=== PATIENT | female | born 1990 | race Caucasian/White ===

== ENCOUNTER 2017-07-23 01:34 | Emergency (ER) | payer OTHER ==
[2017-07-23 04:15] LABS: URINE APPEARANCE CLOUDY; URINE BILIRUBIN NEGATIVE (NEGATIVE); URINE BLOOD 1+ (NEGATIVE); URINE COLOR YELLOW; URINE GLUCOSE (UA) NEGATIVE (NEGATIVE); URINE KETONE NEGATIVE (NEGATIVE); URINE NITRITE NEGATIVE (NEGATIVE); URINE PROTEIN NEGATIVE (NEGATIVE); URINE UROBILINOGEN NEGATIVE mg/dL (0.2-1.0)
[2017-07-23 04:18] LABS: URINE BACTERIA MANY /hpf (NONE SEEN); URINE MUCUS FEW; URINE RBC 33; URINE WBC 3
[2017-07-23] MEDS ORDERED: KETOROLAC TROMETHAMINE 30 MG/1 ML VIAL IVPUSH ONE (04:29)
--- NOTE | 2017-07-23 04:29 | PDOC ---
History of Present Illness - General Chief Complaint: Pain Stated Complaint: PAIN Time Seen by Provider: 07/23/17 04:02 - History of Present Illness Initial Comments: 07/23/17 04:25 CHIEF COMPLAINT: abdominal pain HISTORY OF PRESENT ILLNESS: 27 yo F with hx of ovarian cysts presents to ED with one month of lower abdominal pain and headache today. Patient states she saw her PMD Dr. Jonny Thorpe this week and was given a prescription to get a renal ultrasound. She denies any fever, chills, nausea, vomiting, or diarrhea. No recent travel or sick contacts. PAST MEDICAL HISTORY: Denies past medical history FAMILY HISTORY: Denies SOCIAL HISTORY: Denies tobacco, alcohol, illicit drug use. SURGICAL HISTORY: 4 years ago ALLERGIES: PCN REVIEW OF SYSTEMS General/Constitutional: Denies fever or chills. Denies weakness, weight change. HEENT: Denies change in vision. Denies ear pain or discharge. Denies sore throat. Cardiovascular: Denies chest pain or shortness of breath. Respiratory: Denies cough, wheezing, or hemoptysis. Gastrointestinal: Lower abdominal pain. Denies nausea, vomiting, diarrhea or constipation. Genitourinary: Denies dysuria, frequency, or change in urination. Musculoskeletal: Denies joint or muscle swelling or pain. Denies neck or back pain. Skin: Denies rash or easy bruising. Neurologic: "I have a little headache now." Denies vertigo, loss of consciousness, or loss of sensation. PHYSICAL EXAM General Appearance: Well-appearing, appropriately dressed. No apparent distress , no intoxication. HEENT: EOMI, PERRLA. No conjunctival pallor. No photophobia, scleral icterus. Respiratory/Chest: Lungs CTAB. Cardiovascular: RRR. S1, S2. Gastrointestinal/Abdominal: Mild tenderness to lower abdomen. Normal bowel sounds. Abdomen soft, non-distended. No organomegaly, pulsatile mass, guarding , hernia, hepatomegaly, splenomegaly. Musculoskeletal/Extremities: Normal inspection. FROM of all extremities, normal capillary refill. Pelvis Stable. No CVA tenderness. No tenderness to extremities, pedal edema, swelling, erythema or deformity. Integumentary: Appropriate color, dry, warm. No cyanosis, erythema, jaundice or rash Neurologic: trouble clerk II-XII intact. Fully oriented, alert. Appropriate mood/affect. Motor strength 5/5. No appreciable EOM palsy, facial droop or sensory deficit. Past History - Past Medical History Allergies/Adverse Reactions: Allergies Allergy/AdvReac Type Severity Reaction Status Date / Time Penicillins Allergy Intermediate Rash Verified 07/15/16 07:57 Home Medications: Ambulatory Orders Vit No.130/Iron/FA [ Vitamins] 1 each PO DAILY 04/14/16 Ibuprofen [Motrin -] 600 mg PO TID PRN #21 tablet 07/23/17 Asthma: No Cancer: No Cardiac Disorders: No COPD: No Diabetes: No HTN: No Seizures: No Thyroid Disease: No - Suicide/Smoking/Psychosocial Hx Smoking History: Never smoked Have you smoked in the past 12 months: No Hx Alcohol Use: No Drug/Substance Use Hx: No Substance Use Type: None Hx Substance Use Treatment: No ED Treatment Course - LABORATORY CBC & Chemistry Diagram: 07/23/17 04:52 07/23/17 04:52 - ADDITIONAL ORDERS Additional order review: Laboratory Results 07/23/17 04:02 Urine Color Yellow Urine Appearance Cloudy Urine pH 6.0 Ur Specific [place] 1.028 Urine Protein Negative Urine Glucose (UA) Negative Urine Ketones Negative Urine Blood 1+ H Urine Nitrite Negative Urine Bilirubin Negative Urine Urobilinogen Negative Urine WBC (Auto) 3 Urine RBC (Auto) 33 Ur Epithelial Cells Rare Urine Bacteria Many Urine Mucus Few Urine HCG, Qual Negative Medical Decision Making - Medical Decision Making 07/24/17 14:28 27 yo F with hx of ovarian cysts presents to ED with one month of lower abdominal pain and headache today. -CBC, CMP, lipase, amylase Ultrasound unavailable overnight, will order abdomen and pelvis CT r/o stones. CT unremarkable, R sided ovarian cyst seen. Advised patient to take Motrin for pain, follow up with OBGYN, and of signs and symptoms for return to ER; patient verbalized understanding and agrees to plan. *DC/Admit/Observation/Transfer Diagnosis at time of Disposition: Abdominal pain Qualifiers: Abdominal location: lower abdomen, unspecified Qualified Code(s): R10.30 - Lower abdominal pain, unspecified Ovarian cyst Qualifiers: Laterality: right Qualified Code(s): N83.201 - Unspecified ovarian cyst, right side - Discharge Dispostion Disposition: HOME Condition at time of disposition: Stable Admit: No - Prescriptions Prescriptions: Ibuprofen [Motrin -] 600 mg PO TID PRN #21 tablet PRN Reason: Pain - Referrals Referrals: Pratima Zhao MD [Primary Care Provider] - - Patient Instructions Printed Discharge Instructions: DI for Ovarian Cyst Additional Instructions: Please take medication as prescribed. Follow up with your doctor and the OBGYN bellen the next week. If you develop any new severe pain, vaginal bleeding, fever, nausea, vomiting, or any new or worsening symptoms, please return to the ER . - Post Discharge Activity
[2017-07-23 05:03] LABS: BASOPHIL 0.4 % (0-2.0); EOSINOPHIL 1.1 % (0-4.5); MCH 29.6 pg (25.7-33.7); MCHC 33.7 g/dl (32.0-36.0); MEAN CELL VOLUME 87.6 fl (80-96); MEAN PLT VOLUME 8.3 fl (7.5-11.1); NEUTROPHILS 55.9 % (42.8-82.8); PLATELET COUNT 273 K/MM3 (134-434); RDW 13.3 % (11.6-15.6); WHITE BLOOD COUNT 8.5 K/mm3 (4.0-10.0)
[2017-07-23 05:28] LABS: ALBUMIN 3.8 g/dl (3.4-5.0); AMYLASE 46 U/L (25-115); ANION GAP 6 (8-16); BILIRUBIN,TOTAL 0.2 mg/dL (0.2-1.0); CALCIUM 8.6 mg/dL (8.5-10.1); CO2 27 mmol/L (21-32); CREATININE 0.6 mg/dL (0.55-1.02); GLUCOSE,RANDOM 95 mg/dL (74-106); SGOT/AST 10 U/L (15-37); SGPT/ALT 18 U/L (12-78)
[2017-07-23 05:30] LABS: ALK PHOS 66 U/L (45-117)
[2017-07-23 14:18] LABS: URINE LEUK ESTERASE Negative (NEGATIVE)
== END 2017-07-23 07:08 | disposition home or self-care (01) ==
LOC: JER 01:34
PROC: 3E0333Z Introduction of Anti-inflammatory into Peripheral Vein, Percutaneous Approach (ICD-10-PCS; principal; 2017-07-23)
DX: N83.201 Unspecified ovarian cyst, right side (principal)
CPT/HCPCS: 36415; 74176; 80053; 81003; 81015; 82150; 83690; 84703; 85025; 87086; 99282-25

== ENCOUNTER 2022-04-13 14:30 | Inpatient (IN) | payer OTHER ==
[2022-04-13] MEDS ORDERED: ELECTROLYTE-148 SOLN 1,000 ML IV SCH (16:00)
[2022-04-13 16:21] LABS: BASO % 0.5 % (0-2.0); EOS % 0.5 % (0-4.5); HEMATOCRIT 32.8 % (32.4-45.2); LYMPH % 19.8 % (8-40); MCH 28.6 pg (25.7-33.7); MCHC 33.5 g/dl (32.0-36.0); MEAN CELL VOLUME 85.4 fl (80-96); MONO % 6.6 % (3.8-10.2); NEUT % 72.6 % (42.8-82.8); PLATELET COUNT 257 10^3/uL (134-434); RBC 3.85 M/mm3 (3.60-5.2); RDW 14.9 % (11.6-15.6); WHITE BLOOD COUNT 8.4 K/mm3 (4.0-10.0)
[2022-04-13 16:30] LABS: INR 0.91 (0.83-1.09); PROTHROMBIN TIME (PATIENT) 10.5 SEC (9.7-13.0)
[2022-04-13 16:32] LABS: ACTIVATED PTT 25.8 SECONDS (25.2-36.5)
[2022-04-13 16:42] LABS: CALCIUM 8.7 mg/dL (8.5-10.1)
[2022-04-13 16:46] LABS: CREATININE 0.5 mg/dL (0.55-1.3)
[2022-04-13] MEDS ORDERED: FENTANYL/BUPIVACAINE/NS/PF - PCEA - 50 ML DISP.SYRIN EP ONE ×2 (16:55→20:44)
[2022-04-13] MEDS: FENTANYL/BUPIVACAINE/NS/PF - PCEA - 50 ML DISP.SYRIN EP SCH ×2 (17:05→20:50)
[2022-04-13] MEDS ORDERED: NALOXONE HCL 0.4 MG/ML VIAL IVPUSH PRN (17:19)
[2022-04-13 17:27] VITALS: BMI 34.3
[2022-04-13] MEDS ORDERED: OXYTOCIN 30 UNITS in 0.9% NS 30 UNIT/500 ML INFUS.BAG IVPB ONE (21:43)
[2022-04-13] MEDS ORDERED: OXYTOCIN 30 UNITS in 0.9% NS 30 UNIT/500 ML INFUS.BAG IVPB SCH (22:15)
[2022-04-13] MEDS ORDERED: OXYTOCIN 20 UNITS in 0.9% NS 20 UNIT/1,000 ML INFUS.BAG IV ONE (22:41)
[2022-04-13] MEDS ORDERED: LIDOCAINE HCL 1% PRESERVATIVE FREE - 30ML VIAL ONE (22:41)
[2022-04-13] MEDS ORDERED: OXYTOCIN 20 UNITS in 0.9% NS 20 UNIT/1,000 ML INFUS.BAG IV SCH (23:45)
[2022-04-13] MEDS ORDERED: WITCH HAZEL 50% (TUCKS) 40 PAD/JAR PAD TP PRN (23:51)
[2022-04-13] MEDS ORDERED: BISACODYL 10 MG SUPP.RECT RC PRN (23:51)
[2022-04-13] MEDS ORDERED: ACETAMINOPHEN 325 MG TABLET (FP) PO PRN (23:51)
[2022-04-13] MEDS ORDERED: oxyCODONE HCL 5 MG TABLET PO PRN (23:51)
[2022-04-13] MEDS ORDERED: BENZOCAINE 28 GM HEMORRHOIDAL OINTMENT TP PRN (23:51)
[2022-04-13] MEDS ORDERED: BENZOCAINE 20% 57 GM BOTTLE TP PRN (23:51)
[2022-04-13] MEDS ORDERED: METHYLERGONOVINE MALEATE 0.2 MG/1 ML AMP IM PRN (23:51)
[2022-04-14 00:49] LABS: CORD BASE EXCESS -7.8 mmol/L (0-2); CORD HCO3 21.9 mmHg (20-29); CORD PCO2 62.5 mmHg (30-78); CORD pH 7.162 (7.14-7.44)
[2022-04-14 00:52] LABS: CORD HCO3 19.2 mmHg (20-29); CORD PCO2 40.8 mmHg (30-78); CORD pH 7.29 (7.14-7.44)
[2022-04-14] MEDS: IBUPROFEN 600 MG TABLET (FP) PO PRN ×2 (08:03→20:12)
[2022-04-14 09:53] LABS: BASO % 0.4 % (0-2.0); EOS % 0.5 % (0-4.5); HEMATOCRIT 30.3 % (32.4-45.2); HEMOGLOBIN 10.2 GM/dL (10.7-15.3); LYMPH % 15.3 % (8-40); MCH 28.7 pg (25.7-33.7); MCHC 33.7 g/dl (32.0-36.0); MEAN CELL VOLUME 85.2 fl (80-96); MEAN PLT VOLUME 8.6 fl (7.5-11.1); NEUT % 76.8 % (42.8-82.8); PLATELET COUNT 232 10^3/uL (134-434); RBC 3.56 M/mm3 (3.60-5.2); RDW 14.9 % (11.6-15.6); WHITE BLOOD COUNT 10.6 K/mm3 (4.0-10.0)
[2022-04-14] MEDS ORDERED: SENNOSIDES/DOCUSATE COMBO (SENNA PLUS) TABLET (UD) PO PRN (22:00)
[2022-04-15] MEDS: IBUPROFEN 600 MG TABLET (FP) PO PRN (06:10)
[2022-04-15] MEDS: FENTANYL/BUPIVACAINE/NS/PF - PCEA - 50 ML DISP.SYRIN EP SCH (07:20)
[2022-04-15 09:08] VITALS: BP 130/83; PULSE 83; RESP 18; TEMP 98.7
== END 2022-04-15 13:00 | disposition home or self-care (01) | DRG 560 ==
LOC: JDEL 14:30 → JLDR 15:30 → J3W 04-14 01:23
PROVIDERS: ADMIT Obstetrics & Gynecology; ATTEND Obstetrics & Gynecology
PROC: 10E0XZZ Delivery of Products of Conception, External Approach (ICD-10-PCS; principal; 2022-04-13)
DX: O34.219 Maternal care for unspecified type scar from previous cesarean delivery (principal); Z3A.39 39 weeks gestation of pregnancy; Z37.0 Single live birth
CPT/HCPCS: 36415; 36600; 59025; 59409; 80048; 82803; 85025; 85610; 85730; 86780; 86850; 86900; 86901; C9803-CS; U0003; U0005

== ENCOUNTER 2024-02-23 19:49 | Emergency (ER) | payer OTHER ==
[2024-02-23 20:02] VITALS: TEMP 98.8; BMI 32.8
[2024-02-23] MEDS ORDERED: ACETAMINOPHEN 325 MG TABLET (FP) ONE (20:43)
[2024-02-23] MEDS ORDERED: amLODIPine BESYLATE 5 MG TABLET (FP) ONE (20:43)
[2024-02-23] MEDS: ACETAMINOPHEN 500 MG TABLET (FP) PO ONE (20:58)
[2024-02-23] MEDS: amLODIPine BESYLATE 5 MG TABLET (FP) PO ONE (20:58)
[2024-02-23 21:09] LABS: BASO % 0.7 % (0-2.0); EOS % 1.4 % (0-4.5); HEMATOCRIT 36.7 % (32.4-45.2); HEMOGLOBIN 12.3 GM/dL (10.7-15.3); LYMPH % 30.9 % (8-40); MCHC 33.5 g/dl (32.0-36.0); MEAN CELL VOLUME 83.6 fl (80-96); MEAN PLT VOLUME 7.4 fl (7.5-11.1); MONO % 6.7 % (3.8-10.2); NEUT % 60.3 % (42.8-82.8); PLATELET COUNT 358 10^3/uL (134-434); RBC 4.39 M/mm3 (3.60-5.2); RDW 14.1 % (11.6-15.6); WHITE BLOOD COUNT 10.6 K/mm3 (4.0-10.0)
[2024-02-23 21:29] LABS: POTASSIUM 4.1 mmol/L (3.5-5.1)
[2024-02-23 21:31] LABS: ALBUMIN 3.6 g/dl (3.4-5.0); BLOOD UREA NITROGEN 9.8 mg/dL (7-18); CALCIUM 8.9 mg/dL (8.5-10.1)
[2024-02-23 21:35] LABS: CREATININE 0.7 mg/dL (0.55-1.3)
[2024-02-23 21:37] LABS: BILIRUBIN,TOTAL 0.2 mg/dL (0.2-1)
[2024-02-23 22:10] VITALS: BP 125/71; PULSE 78; RESP 16
== END 2024-02-23 22:00 | disposition home or self-care (01) ==
LOC: JER 19:49
DX: I10 Essential (primary) hypertension (principal); R51.9 Headache, unspecified
CPT/HCPCS: 36415; 80053; 85025; 93005; 93010; 99284-25